=== PATIENT | male | born 1960 | race Two or more races ===

== ENCOUNTER 2016-09-12 23:59 | Inpatient (IN) | payer BC ==
--- NOTE | ~2016-09-12 | OR ---
Unit #: [id number] #: [id number] Patient: MAXINE QURESHI [id number] [address] [place], [place] [address] [id number] I MR#: [id number] NAME: MAXINE QURESHI ROOM: 237 Date of Procedure: 09/13/2016 Admission Date: 09/13/2016 Surgeon: Armando Barroso Jr., M.D. : 1960 Attending Physician: Armando Barroso Jr., M.D. OPERATIVE REPORT INDICATIONS FOR PROCEDURE The patient is a 56-year-old [place] male, who presented complaining of less than 24 hours of periumbilical pain, now shifted to the right lower quadrant. CT is compatible with acute appendicitis with a markedly dilated appendix without obvious perforation or abscess and white blood cell count was elevated. He had localized tenderness in the right lower quadrant. He was brought to the operating room at this time for diagnostic laparoscopy with laparoscopic appendectomy possible open. The patient understands the procedure including the risks, including that of bleeding, intra-abdominal organ injury, staple line leak and abscess formation, and consents. PREOPERATIVE DIAGNOSIS Acute nonperforated appendicitis. POSTOPERATIVE DIAGNOSES Acute nonperforated appendicitis, noting suppurative appendicitis without obvious perforation. ANESTHESIA General with endotracheal intubation and 0.5% Marcaine with epinephrine locally. PROCEDURE PERFORMED Laparoscopic appendectomy with diagnostic laparoscopy. DESCRIPTION OF PROCEDURE The patient was positioned in supine position. After being anesthetized and intubated, he was prepped and draped in routine fashion for diagnostic laparoscopy and laparoscopic appendectomy. A small 0.5 cm incision was made in the right upper quadrant abdominal wall area well away from his midline, where he had a large scar and a 5-mm port was introduced in the abdomen. The abdomen was then inflated with CO2 gas. The camera was introduced in the abdomen. There was no evidence of any injury related to introduction of the Optiview. Brief intra-abdominal exploration was carried out. The patient was noted to have minimal adhesions from what he describes as a formal operation in the past. A 5-mm port was placed in the infraumbilical area and a 5-mm port residential between the umbilicus and suprapubic area, with a 12 mm port being placed in the upper incision at the point, where the Optiview was introduced. The cecum was mobilized and the appendix was near gangrenous and suppurative, but there was no obvious perforation or abscess formation. A window was created at the base of the Unit #: [id number] #: [id number] Patient: MAXINE QURESHI appendix and the linear stapler using 3.5 mm staple was used to staple and transect the base of the appendix. There was no evidence of any bleeding from the staple line. The mesoappendix was stapled with a vascular load x2. There was small amount of oozing from the staple line and this was controlled with 5 mm hemoclips. After hemostasis was achieved, the appendix was placed in EndoCatch bag and brought out through the larger port site and sent to Pathology. The port was replaced in the right lower quadrant and checked. Several sponges were used to dab up blood and there was no evidence of any ongoing bleeding. After noting total hemostasis, the CO2 was expressed from the abdomen. The fascia in the larger port site to the right of the upper midline was approximated with the neoClose technique prior to removal of the CO2. After CO2 was expressed from the abdomen, the port sites were injected with 0.5% Marcaine with epinephrine. The ports were removed. There was no evidence of any bleeding from the port sites. The wounds were irrigated again after hemostasis was achieved with Bovie cautery. Skin edges were approximated with stainless-steel skin clips and skin stapling device. Sterile dressings were applied externally. Estimated blood loss less than 35 mL. The patient received less than 1000 mL crystalloid solution during the procedure. Sponges and instrument counts were correct x3. No drains used. No complications. The patient was taken to the recovery room with stable vital signs in satisfactory condition. Dictated by... Armando Barroso Jr., M.D. JMB/jamal TD: 09/14/2016 01:36 JOB #: [id number] CC: Servando oB M.D. OPERATIVE REPORT Page 1 of 1 X Armando Barroso MD X PROCEDURE OPERATIVE NOTE
--- NOTE | ~2016-09-12 | HP ---
Unit #: [id number] #: [id number] Patient: MAXINE QURESHI [id number] [address] [address] [id number] I MR#: [id number] NAME: MAXINE QURESHI ROOM: 237 Age: 56 Sex: M Admission Date: 09/13/2016 : 1960 Attending Physician: Armando Barroso Jr., M.D. HISTORY AND PHYSICAL CHIEF COMPLAINT Lower abdominal pain. 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 It has now shifted more to the right lower quadrant. He has had no nausea, no vomiting but did have feeling of gas pains in the lower abdomen and tried a laxative without relief of his gas pains. He has had no fever, chills, no recent upper respiratory problems and no urinary tract symptoms. PAST MEDICAL HISTORY Except for hypertension, which is presently untreated, he has had no other illnesses. SURGERY IN THE PAST He had an exploratory laparotomy with colon resection for premalignant polyp approximately eight years ago without apparent problems. MEDICATIONS He is on no medications chronically. ALLERGIES None known. TRANSFUSIONS None in the past. FAMILY HISTORY Noncontributory. SOCIAL HISTORY The patient is , lives at home with his family. He has a normally good appetite. No recent weight change, nonsmoker, occasional drinker. Works in construction. Immunizations are up-to-date. REVIEW OF SYSTEMS Twelve system review has been performed which is unremarkable except for that noted in present illness. PHYSICAL EXAMINATION VITAL SIGNS: The patient is afebrile. Vital signs are normal. Unit #: [id number] #: [id number] Patient: MAXINE QURESHI GENERAL DESCRIPTION: The patient is a well developed, mildly obese 56-year-old white male in no acute distress. HEENT: Unremarkable. NECK: Supple. CHEST: There is equal bilateral expansion with bilateral equal breath sounds. LUNGS: Clear bilaterally. HEART: Regular rhythm without murmurs or gallops. There is no evidence of cardiomegaly clinically. ABDOMEN: Soft. Moderately tender in the right lower quadrant without guarding or rebound. Active bowel sounds present. No evidence of ascites or hernias. EXTREMITIES: Full range of motion without limitation. There is no evidence of peripheral edema. There is negative psoas sign bilaterally. BACK EXAM: There is no CVA tenderness. NEUROLOGICAL: Grossly intact. DIAGNOSTIC STUDIES IMAGING: CT scan reveals evidence of a dilated appendix compatible with probable acute appendicitis. LABORATORY: White blood cell count is 12,000. The rest of his labs are normal. IMPRESSION The patient has likely nonperforated acute appendicitis. Plan will be to go ahead with diagnostic laparoscopic, laparoscopic appendectomy, possible open. The patient understands the procedure including the risks including that of staple line leaks, bleeding, infection, abscess formation and intraabdominal organ injury and consents. Dictated by Armando Barroso Jr., M.D. DIANA/ronna TD: 09/13/2016 06:14 JOB #: [id number] HISTORY AND PHYSICAL Page 1 of 1 X Armando Barroso MD X HISTORY AND PHYSICAL
[2016-09-13] MEDS ORDERED: NORCO 10-325 TA1 TAB PO (14:14)
== END 2016-09-13 15:22 | disposition home or self-care (01) | DRG 343 ==
LOC: CEDOF 23:59 → C2A 09-13 00:54
PROVIDERS: Surgery
PROC: 0DTJ4ZZ Resection of Appendix, Percutaneous Endoscopic Approach (ICD-10-PCS; principal; 2016-09-13 05:36)
DX: K35.89 Other acute appendicitis (principal); I10 Essential (primary) hypertension; K21.9 Gastro-esophageal reflux disease without esophagitis; Z85.038 Personal history of other malignant neoplasm of large intestine
CPT/HCPCS: 88304; 94010; J0330; J1100; J1170; J1885; J2250; J2270; J2543; J2710; J2765; J3010